=== PATIENT | female | born 1930 | race African-American/Black ===

== ENCOUNTER 2017-02-17 12:48 | Emergency (ER) | payer OTHER, MEDICARE ==
[~2017-02-17] VITALS: Ht 160 cm; Wt 78.6 kg
[~2017-02-17 12:48] MED LIST: ADULT LOW DOSE81 M1 PO; ALDACTAZIDE 251 EACH PO; AMLODIPINE BESY10 MG PO; ARTHRO 7 PO; ASPIR 8181 M1 PO; ASPIRIN EC325 M1 PO; ASPIRIN81 M1 PO; ATIVAN0.5 M1 PO; ATIVAN0.5 MG PO; CENTRUM SILV1 TABLET PO; CENTRUM SILVER1 EAC3 PO; CENTRUM SILVER1 EAC4 PO; CENTRUM SILVER1 EACH PO; CIPRO250 MG PO; CYCLOBENZAPRINE10 M1 PO; DURAGESIC25 MCG TD; ENDOCET 5-3251 EACH PO; FENTANYL1 EAC5 TD; FISH OIL 1,2001 EAC4 PO; FISH OIL300 MG PO; FISH OIL500 MG PO; FLEXERIL10 MG PO; Fish Oil PO; GLUCOPHAGE500 MG PO; HAIR, SKIN & N1 EAC1 PO; HYDROCHLOROTH12.5 M1 PO; HYDROCHLOROTH12.5 M3 PO; HYDROCHLOROTHIA25 MG PO; INDOMETHACIN50 MG PO; LAMISIL250 MG; LEVOTHROID,SYN0.1 MG PO; LEVOTHROID100 MCG PO; LEVOTHYROXINE100 MCG PO; LEVOXYL100 MCG PO; LISINOPRIL40 MG PO; LOPRESSOR100 M1 PO; LOPRESSOR50 MG PO; LORAZEPAM0.5 MG PO; LOW DOSE ASPIRI81 M1 PO; MACRODANTIN100 MG PO; MENOPAUSE SUPPO20 MG PO; METFORMIN HCL500 M1 PO; METOCLOPRAMIDE H5 MG PO; METOPROLOL SUC100 MG PO; METOPROLOL TAR100 MG PO; MICROZIDE12.5 M1 PO; NORVASC10 MG PO; NORVASC5 MG PO; OCUVITE TABLET1 EACH PO; OMEGA 3-6-91200 MG PO; OMEPRAZOLE20 MG PO; OS-CAL 500+D T1 EAC1 PO; OS-CAL 500+D31 EACH PO; OSCAL 250 W/VI250 MG PO; OXYCODONE-APAP1 EAC6 PO; PERCOCET 10-321 EACH PO; PERCOCET 10/1 TABLET PO; PERCOCET 5/31 TABLET PO; PERCOCET 7.51 TABLET PO; PLAVIX75 MG PO; PRILOSEC OTC20 M1 PO; PRILOSEC20 MG PO; SIMVASTATIN20 MG PO; TERBINAFINE HC250 MG PO; TOPROL XL50 MG PO; VITAMIN C PO; ZESTRIL,PRINIVI20 MG PO; ZESTRIL20 MG PO; Zestril,Prinivil PO; [UNRECOGNIZED DRUG - CODE]; [UNRECOGNIZED DRUG - CODE]; [UNRECOGNIZED DRUG - CODE] PO; [UNRECOGNIZED DRUG - OTHER]; [UNRECOGNIZED DRUG - OTHER]; [UNRECOGNIZED DRUG - OTHER] PO; [UNRECOGNIZED DRUG - OTHER] PO; [UNRECOGNIZED DRUG - OTHER] PO; amlodipine; fish oil; metoprolol; ocuvite
[2017-02-17 15:24] VITALS: BP 170/80
== END 2017-02-17 15:29 | disposition home or self-care (01) ==
LOC: EME 12:48
PROC: 3E0234Z Introduction of Serum, Toxoid and Vaccine into Muscle, Percutaneous Approach (ICD-10-PCS; principal; 2017-02-17)
DX: S00.83XA Contusion of other part of head, initial encounter (principal); Z23 Encounter for immunization; W01.198A Fall on same level from slipping, tripping and stumbling with subsequent striking against other object, initial encounter; Z79.01 Long term (current) use of anticoagulants; E11.9 Type 2 diabetes mellitus without complications; E78.5 Hyperlipidemia, unspecified; I50.9 Heart failure, unspecified; K21.9 Gastro-esophageal reflux disease without esophagitis; Z86.73 Personal history of transient ischemic attack (TIA), and cerebral infarction without residual deficits; Z79.84 Long term (current) use of oral hypoglycemic drugs; Z88.1 Allergy status to other antibiotic agents
CPT/HCPCS: 70450; 99281; 99283

== ENCOUNTER 2017-10-14 08:42 | Emergency (ER) | payer OTHER, MEDICARE ==
[~2017-10-14] VITALS: Ht 162.6 cm; Wt 78.2 kg
[2017-10-14 09:53] LABS: HEMATOCRIT 42.5 % (36.0-46.0); HEMOGLOBIN 14.3 G/DL (11.9-15.5); MCH 29.7 PG (29.0-34.0); MCHC 33.6 G/DL (30.0-36.0); MCV 88.4 FL (83-99); PLATELET COUNT 301 K/uL (156-360); RBC DIS.WIDTH-CV 14.1 % (11.8-14.6); RBC DIS.WIDTH-SD 45.1 % (39-53); RED BLOOD COUNT 4.81 M/uL (3.80-5.20); WHITE BLOOD COUNT 21.7 K/uL (4.1-10.2)
[2017-10-14 10:04] LABS: CHLORIDE 101 mEq/L (99-109); POTASSIUM 3.9 mEq/L (3.7-5.4); SODIUM 137 mEq/L (136-147)
[2017-10-14 10:05] LABS: GLUCOSE 155 mg/dL (70-99)
[2017-10-14 10:09] LABS: CREATININE 1.3 mg/dL (0.6-1.3); GFR ESTIMATE (CALCULATED) 50 mL/min/
[2017-10-14 10:10] LABS: UREA NITROGEN (BUN) 26 mg/dL (9-23)
[2017-10-14 10:17] LABS: TROP-I INTERPRETATION NEGATIVE; TROPONIN-I 0.02 ng/mL (0.0-0.30)
[2017-10-14] MEDS ORDERED: ZOFRAN4 MG PO (14:02)
[2017-10-14 14:11] VITALS: BP 127/73
[2017-10-14 14:36] LABS: APPEARANCE CLEAR ((CLEAR)); BILIRUBIN NEGATIVE; BLOOD NEGATIVE; COLOR YELLOW ((YELLOW)); GLUCOSE (STRIP) NEGATIVE; KETONES NEGATIVE; LEUKOCYTES SMALL; NITRITE POSITIVE; PROTEIN (STRIP) NEGATIVE; SPECIFIC GRAVITY 1.019 (1.000-1.030); UROBILINOGEN 0.2 MG/DL (0.2-1.0)
[2017-10-14 14:39] LABS: BACTERIA 3+ /HPF; EPITHELIAL CELLS RARE /HPF; HYALINE CASTS 0-5 /LPF; MUCUS TRACE /LPF; RED BLOOD CELLS 0-5 /HPF (0-5); UCUL ADDED? YES
== END 2017-10-14 15:55 | disposition home or self-care (01) ==
LOC: EME 08:42
PROVIDERS: Emergency Medicine
DX: B34.9 Viral infection, unspecified (principal); R11.2 Nausea with vomiting, unspecified; R19.7 Diarrhea, unspecified; D72.829 Elevated white blood cell count, unspecified; R51 Headache; M54.9 Dorsalgia, unspecified; R53.1 Weakness; N20.0 Calculus of kidney; K57.30 Diverticulosis of large intestine without perforation or abscess without bleeding; K76.0 Fatty (change of) liver, not elsewhere classified; E03.9 Hypothyroidism, unspecified; I10 Essential (primary) hypertension; E78.5 Hyperlipidemia, unspecified; E11.9 Type 2 diabetes mellitus without complications; Z79.84 Long term (current) use of oral hypoglycemic drugs; Z79.02 Long term (current) use of antithrombotics/antiplatelets; Z79.82 Long term (current) use of aspirin; Z86.73 Personal history of transient ischemic attack (TIA), and cerebral infarction without residual deficits
CPT/HCPCS: 71045; 74176; 80048; 81003; 82948; 84484; 85027; 87077; 87086; 87186; 87502; 93005; 99281; 99285; J2405; J7030

== ENCOUNTER 2017-12-23 16:45 | Emergency (ER) | payer OTHER, MEDICARE ==
[~2017-12-23] VITALS: Ht 160 cm; Wt 77.0 kg
[~2017-12-23 16:45] MED LIST changes: +ZOFRAN4 MG PO
[2017-12-23 17:53] LABS: BASOPHIL (%) 0.1 % (0-1); EOSINOPHIL (%) 0 % (0-5); HEMATOCRIT 36.5 % (36.0-46.0); HEMOGLOBIN 12.3 G/DL (11.9-15.5); IMMATURE GRANULOCYTE (%) 0.5 % (0.0-0.7); LYMPHOCYTE (%) 13.4 % (15-42); LYMPHOCYTE COUNT 1.7 K/uL (1.0-2.8); MCH 30.4 PG (29.0-34.0); MCHC 33.7 G/DL (30.0-36.0); MCV 90.3 FL (83-99); MONOCYTE COUNT 0.9 K/uL (0-0.8); NEUTROPHIL COUNT 9.9 K/uL (1.8-6.4); PLATELET COUNT 295 K/uL (156-360); RBC DIS.WIDTH-CV 14.4 % (11.8-14.6); RBC DIS.WIDTH-SD 47.8 % (39-53); RED BLOOD COUNT 4.04 M/uL (3.80-5.20); WHITE BLOOD COUNT 12.5 K/uL (4.1-10.2)
[2017-12-23 18:05] LABS: ALBUMIN 4.2 g/dL (3.2-4.8); CHLORIDE 101 mEq/L (99-109); SODIUM 139 mEq/L (136-147)
[2017-12-23 18:06] LABS: MAGNESIUM 2.1 mg/dL (1.3-2.7)
[2017-12-23 18:08] LABS: GLUCOSE 270 mg/dL (70-99); TOTAL PROTEIN 7.5 g/dL (6.4-8.3)
[2017-12-23 18:09] LABS: TOTAL BILIRUBIN 0.3 mg/dL (0.0-1.0)
[2017-12-23 18:11] LABS: ALKALINE PHOSPHATASE 103 IU/L (3-129); CREATININE 1.2 mg/dL (0.6-1.3); GFR ESTIMATE (CALCULATED) 55 mL/min/
[2017-12-23 18:12] LABS: UREA NITROGEN (BUN) 26 mg/dL (9-23)
[2017-12-23 18:13] LABS: AST (GOT) 16 IU/L (2-34)
[2017-12-23 18:14] LABS: ALT (GPT) 23 IU/L (3-49)
[2017-12-23 19:06] LABS: THYROTROPIN (TSH) 0.42 MIU/L (0.4-5.5)
[2017-12-23 22:19] LABS: APPEARANCE CLEAR ((CLEAR)); BILIRUBIN NEGATIVE; BLOOD NEGATIVE; COLOR YELLOW ((YELLOW)); GLUCOSE (STRIP) 50; KETONES 20; LEUKOCYTES MODERATE; NITRITE NEGATIVE; PROTEIN (STRIP) NEGATIVE; SPECIFIC GRAVITY 1.023 (1.000-1.030); UROBILINOGEN 0.2 MG/DL (0.2-1.0)
[2017-12-23 22:25] LABS: BACTERIA RARE /HPF; EPITHELIAL CELLS RARE /HPF; HYALINE CASTS 0-5 /LPF; MUCUS TRACE /LPF; RED BLOOD CELLS 0-5 /HPF (0-5); UCUL ADDED? YES
[2017-12-24] MEDS ORDERED: LEVAQUIN750 MG PO (01:12)
[2017-12-24] MEDS ORDERED: PROVENTIL,2.5 MG/0.5 IH (04:08)
[2017-12-24 04:22] VITALS: BP 157/88
== END 2017-12-24 04:23 | disposition home or self-care (01) ==
LOC: EME 16:45
PROVIDERS: Emergency Medicine
DX: J20.9 Acute bronchitis, unspecified (principal); N39.0 Urinary tract infection, site not specified; I10 Essential (primary) hypertension; E03.9 Hypothyroidism, unspecified; E78.5 Hyperlipidemia, unspecified; E11.9 Type 2 diabetes mellitus without complications; Z79.84 Long term (current) use of oral hypoglycemic drugs; Z79.02 Long term (current) use of antithrombotics/antiplatelets; Z79.82 Long term (current) use of aspirin; Z86.73 Personal history of transient ischemic attack (TIA), and cerebral infarction without residual deficits; Z90.711 Acquired absence of uterus with remaining cervical stump
CPT/HCPCS: 71046; 71250; 80053; 81003; 83605; 83735; 83880; 84439; 84443; 85025; 87040; 87077; 87086; 87186; 93005; 94640; 94640 76; 99281; 99285; J1956; J7040

== ENCOUNTER 2018-01-30 10:24 | Observation (INO) | payer OTHER, MEDICARE ==
[~2018-01-30] VITALS: Ht 160 cm; Wt 76.3 kg
[~2018-01-30 10:24] MED LIST changes: +ENDOCET 10-3251 EACH PO; +GLUCOPHAGE XR750 MG PO; +LEVAQUIN750 MG PO; -METFORMIN HCL500 M1 PO; -OXYCODONE-APAP1 EAC6 PO; +PROVENTIL,2.5 MG/0.5 IH
[2018-01-30 11:00] LABS: HEMATOCRIT 36.1 % (36.0-46.0); HEMOGLOBIN 12.4 G/DL (11.9-15.5); MCH 31.9 PG (29.0-34.0); MCHC 34.3 G/DL (30.0-36.0); MCV 92.8 FL (83-99); PLATELET COUNT 226 K/uL (156-360); RBC DIS.WIDTH-CV 14.4 % (11.8-14.6); RBC DIS.WIDTH-SD 49.1 % (39-53); RED BLOOD COUNT 3.89 M/uL (3.80-5.20); WHITE BLOOD COUNT 8.8 K/uL (4.1-10.2)
[2018-01-30 11:10] LABS: ALBUMIN 4.1 g/dL (3.2-4.8); CHLORIDE 104 mEq/L (99-109); POTASSIUM 3.8 mEq/L (3.7-5.4); SODIUM 141 mEq/L (136-147)
[2018-01-30 11:12] LABS: GLUCOSE 233 mg/dL (70-99)
[2018-01-30 11:13] LABS: TOTAL PROTEIN 6.8 g/dL (6.4-8.3)
[2018-01-30 11:14] LABS: TOTAL BILIRUBIN 0.5 mg/dL (0.0-1.0)
[2018-01-30 11:16] LABS: ALKALINE PHOSPHATASE 86 IU/L (3-129); CREATININE 1.3 mg/dL (0.6-1.3); GFR ESTIMATE (CALCULATED) 50 mL/min/
[2018-01-30 11:17] LABS: UREA NITROGEN (BUN) 15 mg/dL (9-23)
[2018-01-30 11:18] LABS: AST (GOT) 19 IU/L (2-34)
[2018-01-30 11:19] LABS: ALT (GPT) 24 IU/L (3-49)
[2018-01-30 11:30] LABS: APPEARANCE CLEAR ((CLEAR)); BILIRUBIN NEGATIVE; BLOOD NEGATIVE; COLOR YELLOW ((YELLOW)); GLUCOSE (STRIP) 150; KETONES NEGATIVE; LEUKOCYTES TRACE; NITRITE NEGATIVE; PROTEIN (STRIP) NEGATIVE; SPECIFIC GRAVITY 1.021 (1.000-1.030); UROBILINOGEN 0.2 MG/DL (0.2-1.0)
[2018-01-30 11:36] LABS: BACTERIA NONE SEEN /HPF; EPITHELIAL CELLS RARE /HPF; HYALINE CASTS 0-5 /LPF; MUCUS NONE SEEN /LPF; RED BLOOD CELLS 0-5 /HPF (0-5); UCUL ADDED? NO; WHITE BLOOD CELLS 0-5 /HPF (0-5)
[2018-01-30 12:10] LABS: TROP-I INTERPRETATION NEGATIVE; TROPONIN-I 0.03 ng/mL (0.0-0.30)
[2018-01-30 12:25] LABS: LIPASE 28 U/L (1.0-51.0)
[2018-01-30] MEDS ORDERED: LEVAQUIN750 MG PO (13:45)
[2018-01-30] MEDS ORDERED: SYNTHROID125 MCG PO ×2 (13:46→13:47)
[2018-01-30] MEDS ORDERED: ZANTAC150 MG PO (13:51)
[2018-01-30 14:45] LABS: HDL CHOLESTEROL 38 MG/DL (Desirable>=50); LDL CHOLESTEROL 36 mg/dL (Desirable<100); NON-HDL CHOLESTEROL 68 mg/dL (Desirable<160); TOTAL CHOLESTEROL 106 mg/dL (Desirable<200); TRIGLYCERIDES 161 MG/DL (Normal: <150)
[2018-01-30 16:23] VITALS: BP 188/91
[2018-01-30 17:59] VITALS: BP 189/84
[2018-01-30 19:50] VITALS: BP 165/79
[2018-01-30 23:53] VITALS: BP 118/57
[2018-01-31 03:49] VITALS: BP 139/67
[2018-01-31 07:40] VITALS: BP 141/67
[2018-01-31 09:27] LABS: HEMOGLOBIN A1c (GLYCOHEMOGLOB) 8.1 % (Below 5.7)
[2018-01-31 11:49] VITALS: BP 141/87
== END 2018-01-31 15:05 | disposition home or self-care (01) ==
LOC: EME 10:24 → EDOF 13:41 → ENRESERV 13:46 → 4SOUTH 16:02
PROVIDERS: Internal Medicine
DX: R41.82 Altered mental status, unspecified (principal); R42 Dizziness and giddiness; R11.0 Nausea; I12.9 Hypertensive chronic kidney disease with stage 1 through stage 4 chronic kidney disease, or unspecified chronic kidney disease; N18.9 Chronic kidney disease, unspecified; E03.9 Hypothyroidism, unspecified; E78.5 Hyperlipidemia, unspecified; G89.29 Other chronic pain; E11.22 Type 2 diabetes mellitus with diabetic chronic kidney disease; N39.0 Urinary tract infection, site not specified; Z86.73 Personal history of transient ischemic attack (TIA), and cerebral infarction without residual deficits; Z90.710 Acquired absence of both cervix and uterus; Z79.84 Long term (current) use of oral hypoglycemic drugs; Z79.82 Long term (current) use of aspirin; Z79.02 Long term (current) use of antithrombotics/antiplatelets; Z87.891 Personal history of nicotine dependence; Z88.0 Allergy status to penicillin; Z91.048 Other nonmedicinal substance allergy status
CPT/HCPCS: 70450; 70551; 74177; 80053; 80061; 81003; 82948; 83036; 83690; 84484; 85027; 93005; 93880; 99202; 99281; 99285; C9113; G0378; J2405; J7040